=== PATIENT | male | born 2000 | race Caucasian/White ===

== ENCOUNTER 2020-09-07 08:21 | Emergency (ER) | payer BC ==
[2020-09-07] MEDS ORDERED: Zofran 4 MG/2 ML VIAL IV ONE (08:59)
[2020-09-07] MEDS ORDERED: Sodium Chloride 0.9% 1000 ML 1,000 ML IV STA (08:59)
[2020-09-07] MEDS ORDERED: PROTONIX 40 MG IV IV ONE ×2 (08:59→09:09)
[2020-09-07] MEDS ORDERED: GI COCKTAIL 45 ML (Maalox/Lidocaine) PO ONE (08:59)
[2020-09-07] MEDS ORDERED: XYLOCAINE HCl Viscous ONE (09:09)
[2020-09-07] MEDS ORDERED: Sodium Chloride 0.9% 1000 ML 1,000 ML ONE (09:09)
[2020-09-07] MEDS ORDERED: Zofran 4 MG/2 ML VIAL ONE (09:09)
[2020-09-07] MEDS ORDERED: MAALOX ES 30 ML UNIT DOSE ONE (09:09)
[2020-09-07 09:12] LABS: Hematocrit 45.2 % (42-50); Hemoglobin 15.7 gm/dl (12.5-18.0); Mean Cell Volume 84.8 fl (78-100); Mean Corpuscular Hemoglobin 29.5 pg (26-32); Mean Corpuscular Hgb Concent. 34.7 g/dl (32-36); Mean Platelet Volume 10.1 fl (7.5-11.0); Platelet Count 220 K/mm3 (150-450); Red Blood Count 5.33 M/mm3 (4.1-5.6); Red Cell Distribution Width 12.5 % (11.5-14.0); White Blood Count 6.9 K/mm3 (4.0-10.5)
[2020-09-07 09:19] LABS: Appearance CLEAR (CLEAR); Bacteria RARE /HPF (NEGATIVE); Bilirubin NEGATIVE (NEGATIVE); Blood NEGATIVE Ery/ul (0-5); Glucose NEGATIVE (NEGATIVE); Ketones NEGATIVE (NEGATIVE); Leukocyte Esterase NEGATIVE (NEGATIVE); Mucus SLIGHT /HPF (NEGATIVE); Nitrite NEGATIVE (NEGATIVE); Protein,Urine Dip NEGATIVE (Negative); RBC 0-2 /HPF (0-2); Urobilinogen 2 mg/dL (0-1)
[2020-09-07 09:20] LABS: ALBUMIN 4.7 g/dL (3.5-5.0); ALKALINE PHOSPHATASE 62 U/L (38-126); ANION GAP 14.2 MEQ/L (5-15); BLOOD UREA NITROGEN 14 mg/dL (9-20); CHLORIDE 102 mmol/L (98-107); Calcium 9.6 mg/dL (8.4-10.2); Carbon Dioxide 26 mmol/L (22-30); Creatinine 1 0.84 mg/dL (0.66-1.25); EST GLOMERULAR FILTRATION RATE > 60.0 ML/MIN; Glucose 99 mg/dL (74-106); LIPASE 44 U/L (23-300); Potassium 3.9 mmol/L (3.5-5.1); SGOT/AST 37 U/L (17-59); SGPT/ALT 49 U/L (0-50); SODIUM 139 mmol/L (137-145); Total Protein 8.2 g/dL (6.3-8.2)
--- NOTE | 2020-09-07 09:50 | XRAY ---
Indication: Abdomen pain and vomiting. Multiple contiguous images obtained through the abdomen and pelvis using 80 cc Isovue 370 contrast. Comparison: April 14, 2015. Lung bases remain clear. Heart is not enlarged. Noncontrasted stomach and bowel loops remain nonobstructed. Normal appendix. New minimal scattered colonic diverticulosis without diverticulitis. No free fluid/air. Mild diffuse fatty liver. Spleen remains enlarged measuring 15.1 cm. Stable 6 mm left mid renal cyst. Remaining liver, gallbladder, pancreas, spleen, adrenal glands, kidneys, ureters, bladder, and aorta appear unremarkable. No pathologic retroperitoneal lymphadenopathy. Osseous structures intact. No ventral or inguinal hernias. Impression: 1. New fatty liver and colonic diverticulosis. 2. Stable splenomegaly and left renal cyst. 3. Remaining CT abdomen/pelvis with contrast exam is negative.
--- NOTE | 2020-09-07 10:55 | ERPHSYRPT ---
- History of Present Illness Time Seen by Provider: 09/07/20 08:49 Historian: patient Exam Limitations: no limitations Patient Subjective Stated Complaint: Vomiting blood/abdominal pain Triage Nursing Assessment: Patient ambulated back to ED and transferred self to bed. Patient A+O X3. Patient's skin pink, warm and dry. Patient complains of vomiting bright red blood that started at 0200. Patient states he feels drainage in the back of his throat, but when he vomits it is bright red blood. Patient also complains of lower abdominal pain intermittent dull pain 5/10. Abdomen soft and round with BS X 4. Patient complains of pain when swallowing. Physician History: 20 years old presented in the ER with chief complaint of epigastric pain with nausea and vomiting. Patient report he woke up around 330 this morning with nausea and burning and vomited once. He was dry heaving before vomiting and vomitus contained a tinge of blood. He went back to sleep and woke up around 7 AM again with nausea and vomited once with a range of blood. He is complaining of dull aching pain in the upper abdomen. Denies any sick contact. No fever or chills reported. Denies any history of acid reflux. Timing/Duration: day(s) Activities at Onset: sleep Quality: burning, dullness Abdominal Pain Onset Location: epigastric, periumbilical Pain Radiation: no radiation Severity of Pain-Max: moderate Severity of Pain-Current: moderate Modifying Factors: Improves With: nothing Associated Symptoms: nausea, vomiting Previous symptoms: no prior history Allergies/Adverse Reactions: naproxen [From Naprosyn] Allergy (Severe, Verified 09/07/20 08:27) Swelling of Face Hx Tetanus, Diphtheria Vaccination/Date Given: Yes Hx Influenza Vaccination/Date Given: No Hx Pneumococcal Vaccination/Date Given: No Immunizations Up to Date: Yes Travel Risk - International Travel Have you traveled outside of the country in past 3 weeks: No - Coronavirus Screening Are you exhibiting any of the following symptoms?: No Close contact with a COVID-19 positive Pt in past 14-21 Days: No - Review of Systems Constitutional: No Symptoms Eyes: No Symptoms Ears, Nose, & Throat: No Symptoms Respiratory: No Symptoms Cardiac: No Symptoms Abdominal/Gastrointestinal: Abdominal Pain, Nausea, Vomiting Genitourinary Symptoms: No Symptoms Musculoskeletal: No Symptoms Skin: No Symptoms Neurological: No Symptoms Psychological: No Symptoms Endocrine: No Symptoms Hematologic/Lymphatic: No Symptoms Immunological/Allergic: No Symptoms - Past Medical History Pertinent Past Medical History: Yes Neurological History: No Pertinent History ENT History: No Pertinent History Cardiac History: No Pertinent History Respiratory History: No Pertinent History Endocrine Medical History: No Pertinent History Musculoskeletal History: No Pertinent History, Other GI Medical History: No Pertinent History History: No Pertinent History Psycho-Social History: No Pertinent History Male Reproductive Disorders: No Pertinent History Other Medical History: CONCUSSION, currently been worked up at [facility] for cara barre virus, and guillion kalyani 2016 - Past Surgical History Past Surgical History: Yes Male Surgical History: Testicular Surgery Other Surgical History: UNDECENDING TESTICLE - Social History Smoking Status: Never smoker Exposure to second hand smoke: No Drug Use: none Patient Lives Alone: No - Nursing Vital Signs Nursing Vital Signs: Initial Vital Signs Temperature 98.7 F 09/07/20 08:29 Pulse Rate 96 H 09/07/20 08:29 Respiratory Rate 18 09/07/20 08:29 Blood Pressure 149/79 09/07/20 08:29 O2 Sat by Pulse Oximetry 99 09/07/20 08:29 Pain Scale Pain Intensity 0 - Physical Exam General Appearance: no apparent distress, alert, anxiety Eye Exam: eyes nml inspection Ears, Nose, Throat Exam: normal ENT inspection, pharynx normal Neck Exam: normal inspection, non-tender, supple, full range of motion Respiratory Exam: normal breath sounds, lungs clear Cardiovascular Exam: regular rate/rhythm, normal heart sounds Gastrointestinal/Abdomen Exam: soft, normal bowel sounds, tenderness (Epigastric area), No guarding Back Exam: normal inspection, normal range of motion, No CVA tenderness Extremity Exam: normal inspection, normal range of motion, pelvis stable Neurologic Exam: alert, oriented x 3, cooperative Skin Exam: normal color SpO2 Interpretation: normal SpO2: 99 O2 Delivery: Room Air Ordered Tests: Active Orders 24 hr Category Date Time Status IV Insertion STAT Care 09/07/20 08:59 Completed NPO (ED) STAT Care 09/07/20 08:59 Completed ABDOMEN AND PELVIS W CONTRAST [CT] Stat Exams 09/07/20 09:00 Completed CBC W DIFF Stat Lab 09/07/20 08:50 Completed CMP Stat Lab 09/07/20 08:50 Completed LIPASE Stat Lab 09/07/20 08:50 Completed Manual Differential NC Stat Lab 09/07/20 08:50 Completed UA W/RFX UR CULTURE Stat Lab 09/07/20 09:03 Completed Medication Summary Discontinued Medications Generic Name Dose Route Start Last Admin Trade Name Radhika PRN Reason Stop Dose Admin Al Hydrox/Mg Hydrox/Simethicone Confirm 09/07/20 09:09 Maalox Es 30 Ml Unit Dose Administered 09/07/20 09:10 Dose 30 ml .ROUTE .STK-MED ONE Sodium Chloride 1,000 mls @ 999 mls/hr 09/07/20 08:59 09/07/20 10:15 Sodium Chloride 0.9% 1000 Ml IV 09/07/20 09:59 Infused .Q1H1M STA Infusion Sodium Chloride Confirm 09/07/20 09:09 Sodium Chloride 0.9% 1000 Ml Administered 09/07/20 09:10 Dose 1,000 mls @ ud .ROUTE .STK-MED ONE Lidocaine HCl Confirm 09/07/20 09:09 Xylocaine Hcl Viscous * Administered 09/07/20 09:10 Dose 15 ml .ROUTE .STK-MED ONE Magnesium Hydroxide 45 ml 09/07/20 08:59 09/07/20 09:13 Gi Cocktail 45 Ml (Maalox/Lidocaine) PO 09/07/20 09:00 45 ml STAT ONE Administration Ondansetron HCl 4 mg 09/07/20 08:59 09/07/20 09:13 Zofran 4 Mg/2 Ml Vial IV 09/07/20 09:00 4 mg STAT ONE Administration Ondansetron HCl Confirm 09/07/20 09:09 Zofran 4 Mg/2 Ml Vial Administered 09/07/20 09:10 Dose 4 mg .ROUTE .STK-MED ONE Pantoprazole Sodium 40 mg 09/07/20 08:59 09/07/20 09:12 Protonix 40 Mg Iv IV 09/07/20 09:00 40 mg STAT ONE Administration Pantoprazole Sodium Confirm 09/07/20 09:09 Protonix 40 Mg Iv Administered 09/07/20 09:10 Dose 40 mg IV .STK-MED ONE Lab/Rad Data: Laboratory Result Diagrams 09/07/20 08:50 09/07/20 08:50 Laboratory Results 09/07/20 09/07/20 09/07/20 Range/Units 09:03 08:50 08:50 WBC 6.9 (4.0-10.5) K/mm3 RBC 5.33 (4.1-5.6) M/mm3 Hgb 15.7 (12.5-18.0) gm/dl Hct 45.2 (42-50) % MCV 84.8 (78-100) fl MCH 29.5 (26-32) pg MCHC 34.7 (32-36) g/dl RDW 12.5 (11.5-14.0) % Plt Count 220 (150-450) K/mm3 MPV 10.1 (7.5-11.0) fl Segmented Neutrophils 70 H (36.-66.) % Lymphocytes (Manual) 19 L (24-44) % Monocytes (Manual) 5 (0.0-12.0) % Eosinophils (Manual) 3 (0.00-3.0) % Atypical Lymphocytes 3 % Toxic Granulation 1+ Platelet Estimate NORMAL (NORMAL) RBC Morphology NORMAL Sodium 139 (137-145) mmol/L Potassium 3.9 (3.5-5.1) mmol/L Chloride 102 (98-107) mmol/L Carbon Dioxide 26 (22-30) mmol/L Anion Gap 14.2 (5-15) MEQ/L BUN 14 (9-20) mg/dL Creatinine 0.84 (0.66-1.25) mg/dL Estimated GFR > 60.0 ML/MIN Glucose 99 (74-106) mg/dL Calcium 9.6 (8.4-10.2) mg/dL Total Bilirubin 0.90 (0.2-1.3) mg/dL AST 37 (17-59) U/L ALT 49 (0-50) U/L Alkaline Phosphatase 62 (38-126) U/L Serum Total Protein 8.2 (6.3-8.2) g/dL Albumin 4.7 (3.5-5.0) g/dL Lipase 44 (23-300) U/L Urine Color YELLOW (YELLOW) Urine Appearance CLEAR (CLEAR) Urine pH 7.0 (5-6) Ur Specific [place] 1.020 (1.005-1.025) Urine Protein NEGATIVE (Negative) Urine Ketones NEGATIVE (NEGATIVE) Urine Blood NEGATIVE (0-5) Meet/ul Urine Nitrite NEGATIVE (NEGATIVE) Urine Bilirubin NEGATIVE (NEGATIVE) Urine Urobilinogen 2 (0-1) mg/dL Ur Leukocyte Esterase NEGATIVE (NEGATIVE) Urine WBC (Auto) NONE (0-5) /HPF Urine RBC (Auto) 0-2 (0-2) /HPF U Epithel Cells (Auto) NONE (FEW) /HPF Urine Bacteria (Auto) RARE (NEGATIVE) /HPF Urine Mucus (Auto) SLIGHT (NEGATIVE) /HPF Urine Culture Reflexed NO (NO) Urine Glucose NEGATIVE (NEGATIVE) mg/dL - Progress Progress: improved Progress Note: 09/07/20 10:52 20 years old is evaluated for epigastric pain with vomiting and some tinge of blood. Is given fluid bolus along with Protonix GI cocktail, on reevaluation feeling much better. Offered pain meds but refused. He has stable H&H and acute abdomen work-up including CT abdomen pelvis with contrast for any acute findings. He does have fatty liver which he is counseled to have outpatient follow-up with PCP. I believe patient has Fabiola-Tiwari tear and started on Protonix. Discussed signs symptoms of worsening needing return to ER which he seems understanding. Counseled pt/family regarding: lab results, diagnosis, need for follow-up, rad results - Departure Departure Disposition: Home Clinical Impression: Fabiola-Tiwari tear Abdominal pain Qualifiers: Abdominal location: epigastric Qualified Code(s): R10.13 - Epigastric pain Condition: Stable Critical Care Time: No Referrals: HIRAM KURTZ MD [Primary Care Provider] - Follow Up with PCP/3 days Instructions: Acid Reflux and GERD in Adults (DC) Additional Instructions: Do not take ibuprofen. Take Tylenol as needed. Continue with Protonix daily. Follow-up with primary care physician for reevaluation. Return to ER for any worsening. Prescriptions: PANTOPRAZOLE 40 mg Tablet [Protonix 40MG Tablet] 40 mg PO QAM #30 tab
[2020-09-07 11:08] VITALS: BP 102/69; PULSE 78
[2020-09-07 13:52] LABS: ATYPICAL LYMPHS 3 %; Eosinophil 3 % (0.00-3.0); Lymphocytes 19 % (24-44); Monocyte 5 % (0.0-12.0); Neutrophils 70 % (36.-66.); Total Cells Counted 100
[2020-09-07 13:53] LABS: Platelet Estimate NORMAL (NORMAL); Toxic Granulation 1+
[2020-09-07 17:00] VITALS: O2SAT 99
== END 2020-09-07 11:08 | disposition home or self-care (01) ==
LOC: ED 08:21
DX: R10.9 Unspecified abdominal pain (principal); K92.0 Hematemesis; K22.6 Gastro-esophageal laceration-hemorrhage syndrome
CPT/HCPCS: 36000; 36415; 74177; 80053; 81001; 83690; 85025; 96360; 96374; 96375; 99284; J2405; A9270-GY

== ENCOUNTER 2021-03-05 03:12 | Emergency (ER) | payer BC ==
--- NOTE | 2021-03-05 03:13 | ERPHSYRPT ---
- History of Present Illness Time Seen by Provider: 03/05/21 03:13 Historian: patient, family Exam Limitations: no limitations Physician History: This is a 20-year-old white male whose had no prior abdominal surgeries and presents with sudden onset of epigastric abdominal pain that occurred while he was sleeping approximately an hour prior to arrival. Patient has no other symptoms. Patient has not eaten since approximately noon on 03/04/2021. He has had no vomiting and no diarrhea. He has no primary chest pain. He has no cough. He denies fevers. He denies chills. He is not short of breath. He is never had anything like this before. Timing/Duration: today Activities at Onset: none Abdominal Pain Onset Location: RUQ, LUQ, epigastric Pain Radiation: no radiation Severity of Pain-Max: moderate Severity of Pain-Current: moderate Associated Symptoms: loss of appetite, No chest pain, No nausea, No vomiting Previous symptoms: no prior history Allergies/Adverse Reactions: naproxen [From Naprosyn] Allergy (Severe, Verified 03/05/21 03:16) Swelling of Face Hx Tetanus, Diphtheria Vaccination/Date Given: Yes Hx Influenza Vaccination/Date Given: No Hx Pneumococcal Vaccination/Date Given: No Travel Risk - International Travel Have you traveled outside of the country in past 3 weeks: No - Coronavirus Screening Are you exhibiting any of the following symptoms?: No Close contact with a COVID-19 positive Pt in past 14-21 Days: No - Review of Systems Constitutional: No Symptoms Eyes: No Symptoms Ears, Nose, & Throat: No Symptoms Respiratory: No Symptoms Cardiac: No Symptoms Abdominal/Gastrointestinal: Abdominal Pain, Appetite Changes, No Nausea, No Vomiting, No Diarrhea Genitourinary Symptoms: No Symptoms Musculoskeletal: No Symptoms Skin: No Symptoms Neurological: No Symptoms Psychological: No Symptoms Endocrine: No Symptoms Hematologic/Lymphatic: No Symptoms Immunological/Allergic: No Symptoms All Other Systems: Reviewed and Negative - Past Medical History Pertinent Past Medical History: Yes Neurological History: No Pertinent History ENT History: No Pertinent History Cardiac History: No Pertinent History Respiratory History: No Pertinent History Endocrine Medical History: No Pertinent History Musculoskeletal History: No Pertinent History, Other GI Medical History: No Pertinent History History: No Pertinent History Psycho-Social History: No Pertinent History Male Reproductive Disorders: No Pertinent History Other Medical History: CONCUSSION, currently been worked up at [facility] for cara barre virus, and guillion kalyani 2016 - Past Surgical History Past Surgical History: Yes Male Surgical History: Testicular Surgery Other Surgical History: UNDECENDING TESTICLE - Social History Smoking Status: Never smoker Exposure to second hand smoke: No Drug Use: none Patient Lives Alone: No - Nursing Vital Signs Nursing Vital Signs: Initial Vital Signs Temperature 99.2 F 03/05/21 03:34 Pulse Rate 86 03/05/21 03:34 Respiratory Rate 18 03/05/21 03:34 Blood Pressure 145/85 03/05/21 03:34 O2 Sat by Pulse Oximetry 97 03/05/21 03:34 Pain Scale Pain Intensity 7 - Physical Exam General Appearance: no apparent distress, alert, anxiety Eye Exam: PERRL/EOMI, eyes nml inspection Ears, Nose, Throat Exam: normal ENT inspection, moist mucous membranes Neck Exam: normal inspection, non-tender, supple, full range of motion Respiratory Exam: normal breath sounds, lungs clear, No chest tenderness, No respiratory distress Cardiovascular Exam: regular rate/rhythm, normal heart sounds, normal peripheral pulses Gastrointestinal/Abdomen Exam: soft, normal bowel sounds, tenderness (To palpation in the epigastric area.), guarding (Epigastric area.), No rebound Rectal Exam: not done Back Exam: normal inspection, normal range of motion, No CVA tenderness, No vertebral tenderness Extremity Exam: normal inspection, normal range of motion, pelvis stable Neurologic Exam: alert, oriented x 3, cooperative, rental agent II-XII nml as tested, normal mood/affect, nml cerebellar function, nml station & gait, sensation nml Skin Exam: normal color, warm, dry Lymphatic Exam: No adenopathy SpO2 Interpretation: normal O2 Delivery: Room Air - Course Nursing assessment & vital signs reviewed: Yes Ordered Tests: Active Orders 24 hr Category Date Time Status EKG-ER Only STAT Care 03/05/21 03:22 Active IV Insertion STAT Care 03/05/21 03:22 Active ABDOMEN AND PELVIS W/0 CONTRAS [CT] Stat Exams 03/05/21 03:22 Taken AMYLASE Stat Lab 03/05/21 03:29 Completed CBC W DIFF Stat Lab 03/05/21 03:29 Completed CMP Stat Lab 03/05/21 03:29 Completed LIPASE Stat Lab 03/05/21 03:29 Completed Lactic Acid Stat Lab 03/05/21 03:48 Completed Manual Differential NC Stat Lab 03/05/21 03:29 Completed TROPONIN Q3H Lab 03/05/21 03:29 Completed TROPONIN Q3H Lab 03/05/21 06:30 Ordered TROPONIN Q3H Lab 03/05/21 09:30 Ordered TROPONIN Q3H Lab 03/05/21 12:30 Ordered TROPONIN Q3H Lab 03/05/21 15:30 Ordered UA W/RFX UR CULTURE Stat Lab 03/05/21 03:29 Completed Medication Summary Discontinued Medications Generic Name Dose Route Start Last Admin Trade Name Radhika PRN Reason Stop Dose Admin Al Hydrox/Mg Hydrox/Simethicone Confirm 03/05/21 03:35 Maalox Es 30 Ml Unit Dose Administered 03/05/21 03:36 Dose 30 ml .ROUTE .STK-MED ONE Al Hydrox/Mg Hydrox/Simethicone Confirm 03/05/21 03:36 Maalox Es 30 Ml Unit Dose Administered 03/05/21 03:37 Dose 30 ml .ROUTE .STK-MED ONE Hydromorphone HCl 0.5 mg 03/05/21 03:22 03/05/21 03:46 Hydromorphone 1 Mg/Ml Injection IV 03/05/21 03:23 0.5 mg STAT ONE Administration Hydromorphone HCl Confirm 03/05/21 03:34 Hydromorphone 1 Mg/Ml Injection Administered 03/05/21 03:35 Dose 1 mg .ROUTE .STK-MED ONE Sodium Chloride 1,000 mls @ 999 mls/hr 03/05/21 03:22 03/05/21 05:36 Sodium Chloride 0.9% 1000 Ml IV 03/05/21 04:22 Infused .Q1H1M STA Infusion Sodium Chloride Confirm 03/05/21 03:35 Sodium Chloride 0.9% 1000 Ml Administered 03/05/21 03:36 Dose 1,000 mls @ ud .ROUTE .STK-MED ONE Lidocaine HCl Confirm 03/05/21 03:35 Xylocaine Hcl Viscous * Administered 03/05/21 03:36 Dose 15 ml .ROUTE .STK-MED ONE Magnesium Hydroxide 45 ml 03/05/21 03:22 03/05/21 03:40 Gi Cocktail 45 Ml (Maalox/Lidocaine) PO 03/05/21 03:23 45 ml STAT ONE Administration Ondansetron HCl 4 mg 03/05/21 03:22 03/05/21 03:47 Zofran 4 Mg/2 Ml Vial IV 03/05/21 03:23 4 mg STAT ONE Administration Ondansetron HCl Confirm 03/05/21 03:45 Zofran 4 Mg/2 Ml Vial Administered 03/05/21 03:46 Dose 4 mg .ROUTE .STK-MED ONE Pantoprazole Sodium 40 mg 03/05/21 03:22 03/05/21 03:46 Protonix 40 Mg Iv IV 03/05/21 03:23 40 mg STAT ONE Administration Pantoprazole Sodium Confirm 03/05/21 03:34 Protonix 40 Mg Iv Administered 03/05/21 03:35 Dose 40 mg IV .STK-MED ONE Potassium Chloride 10 meq 03/05/21 04:24 03/05/21 04:35 Klor Con 10 Meq PO 03/05/21 04:25 10 meq STAT ONE Administration Potassium Chloride Confirm 03/05/21 04:34 Klor Con 10 Meq Administered 03/05/21 04:35 Dose 10 meq PO .STK-MED ONE Lab/Rad Data: Laboratory Result Diagrams 03/05/21 03:29 03/05/21 03:29 Laboratory Results 03/05/21 03/05/21 03/05/21 Range/Units 03:48 03:29 03:29 WBC (4.0-10.5) K/mm3 RBC (4.1-5.6) M/mm3 Hgb (12.5-18.0) gm/dl Hct (42-50) % MCV (78-100) fl MCH (26-32) pg MCHC (32-36) g/dl RDW (11.5-14.0) % Plt Count (150-450) K/mm3 MPV (7.5-11.0) fl Segmented Neutrophils (36.-66.) % Band Neutrophils (0.0-2.0) % Lymphocytes (Manual) (24-44) % Monocytes (Manual) (0.0-12.0) % Platelet Estimate (NORMAL) RBC Morphology Sodium 142 (137-145) mmol/L Potassium 3.3 L (3.5-5.1) mmol/L Chloride 103 (98-107) mmol/L Carbon Dioxide 25 (22-30) mmol/L Anion Gap 17.2 H (5-15) MEQ/L BUN 13 (9-20) mg/dL Creatinine 0.95 (0.66-1.25) mg/dL Estimated GFR > 60.0 ML/MIN Glucose 103 (74-106) mg/dL Lactic Acid 0.7 (0.4-2.0) Calcium 8.3 L (8.4-10.2) mg/dL Total Bilirubin 1.10 (0.2-1.3) mg/dL AST 44 (17-59) U/L ALT 62 H (0-50) U/L Alkaline Phosphatase 57 (38-126) U/L Troponin I < 0.012 (0.000-0.034) ng/mL Serum Total Protein 7.8 (6.3-8.2) g/dL Albumin 4.6 (3.5-5.0) g/dL Amylase 55 (30-110) U/L Lipase 43 (23-300) U/L Urine Color (YELLOW) Urine Appearance (CLEAR) Urine pH (5-6) Ur Specific [place] (1.005-1.025) Urine Protein (Negative) Urine Ketones (NEGATIVE) Urine Blood (0-5) Meet/ul Urine Nitrite (NEGATIVE) Urine Bilirubin (NEGATIVE) Urine Urobilinogen (0-1) mg/dL Ur Leukocyte Esterase (NEGATIVE) Urine WBC (Auto) (0-5) /HPF Urine RBC (Auto) (0-2) /HPF U Epithel Cells (Auto) (FEW) /HPF Urine Bacteria (Auto) (NEGATIVE) /HPF Urine Mucus (Auto) (NEGATIVE) /HPF Urine Culture Reflexed (NO) Urine Glucose (NEGATIVE) mg/dL 03/05/21 03/05/21 Range/Units 03:29 03:29 WBC 4.7 (4.0-10.5) K/mm3 RBC 5.23 (4.1-5.6) M/mm3 Hgb 15.5 (12.5-18.0) gm/dl Hct 44.5 (42-50) % MCV 85.1 (78-100) fl MCH 29.6 (26-32) pg MCHC 34.8 (32-36) g/dl RDW 12.9 (11.5-14.0) % Plt Count 196 (150-450) K/mm3 MPV 10.0 (7.5-11.0) fl Segmented Neutrophils 61 (36.-66.) % Band Neutrophils 1 (0.0-2.0) % Lymphocytes (Manual) 28 (24-44) % Monocytes (Manual) 10 (0.0-12.0) % Platelet Estimate NORMAL (NORMAL) RBC Morphology NORMAL Sodium (137-145) mmol/L Potassium (3.5-5.1) mmol/L Chloride (98-107) mmol/L Carbon Dioxide (22-30) mmol/L Anion Gap (5-15) MEQ/L BUN (9-20) mg/dL Creatinine (0.66-1.25) mg/dL Estimated GFR ML/MIN Glucose (74-106) mg/dL Lactic Acid (0.4-2.0) Calcium (8.4-10.2) mg/dL Total Bilirubin (0.2-1.3) mg/dL AST (17-59) U/L ALT (0-50) U/L Alkaline Phosphatase (38-126) U/L Troponin I (0.000-0.034) ng/mL Serum Total Protein (6.3-8.2) g/dL Albumin (3.5-5.0) g/dL Amylase (30-110) U/L Lipase (23-300) U/L Urine Color ELSY (YELLOW) Urine Appearance CLEAR (CLEAR) Urine pH 5.0 (5-6) Ur Specific [place] 1.028 (1.005-1.025) Urine Protein 30 (Negative) Urine Ketones NEGATIVE (NEGATIVE) Urine Blood NEGATIVE (0-5) Meet/ul Urine Nitrite NEGATIVE (NEGATIVE) Urine Bilirubin NEGATIVE (NEGATIVE) Urine Urobilinogen 4 (0-1) mg/dL Ur Leukocyte Esterase NEGATIVE (NEGATIVE) Urine WBC (Auto) NONE (0-5) /HPF Urine RBC (Auto) NONE (0-2) /HPF U Epithel Cells (Auto) RARE (FEW) /HPF Urine Bacteria (Auto) NONE (NEGATIVE) /HPF Urine Mucus (Auto) SLIGHT (NEGATIVE) /HPF Urine Culture Reflexed NO (NO) Urine Glucose NEGATIVE (NEGATIVE) mg/dL - Progress Progress: improved, pain not gone completely, re-examined Progress Note: 03/05/21 05:37 CAT scan of the abdomen and pelvis without contrast shows duodenitis and no other acute intra-abdominal process Counseled pt/family regarding: lab results, diagnosis, need for follow-up, rad results - Departure Departure Disposition: Home Clinical Impression: Duodenitis Condition: Stable Critical Care Time: No Referrals: HIRAM KURTZ MD [Primary Care Provider] - Additional Instructions: Clear liquid diet. Avoid fatty greasy spicy foods. Avoid alcohol intake. Avoid tobacco and avoid caffeine. Take your medication as prescribed. Follow- up with your primary care physician for further management. Prescriptions: Omeprazole 40 mg PO DAILY #30
[2021-03-05] MEDS ORDERED: GI COCKTAIL 45 ML (Maalox/Lidocaine) PO ONE (03:22)
[2021-03-05] MEDS ORDERED: PROTONIX 40 MG IV IV ONE ×2 (03:22→03:34)
[2021-03-05] MEDS ORDERED: Zofran 4 MG/2 ML VIAL IV ONE (03:22)
[2021-03-05] MEDS ORDERED: Hydromorphone 1 mg/ml Injection IV ONE ×2 (03:22→05:37)
[2021-03-05] MEDS ORDERED: Sodium Chloride 0.9% 1000 ML 1,000 ML IV STA (03:22)
[2021-03-05] MEDS ORDERED: Hydromorphone 1 mg/ml Injection ONE ×2 (03:34→05:39)
[2021-03-05] MEDS ORDERED: MAALOX ES 30 ML UNIT DOSE ONE ×2 (03:35→03:36)
[2021-03-05] MEDS ORDERED: Sodium Chloride 0.9% 1000 ML 1,000 ML ONE (03:35)
[2021-03-05] MEDS ORDERED: XYLOCAINE HCl Viscous ONE (03:35)
[2021-03-05] MEDS ORDERED: Zofran 4 MG/2 ML VIAL ONE (03:45)
[2021-03-05 03:58] LABS: Appearance CLEAR (CLEAR); Bilirubin NEGATIVE (NEGATIVE); Blood NEGATIVE Ery/ul (0-5); Epithelial Cells RARE /HPF (FEW); Glucose NEGATIVE (NEGATIVE); Hematocrit 44.5 % (42-50); Hemoglobin 15.5 gm/dl (12.5-18.0); Ketones NEGATIVE (NEGATIVE); Leukocyte Esterase NEGATIVE (NEGATIVE); Mean Cell Volume 85.1 fl (78-100); Mean Corpuscular Hemoglobin 29.6 pg (26-32); Mean Corpuscular Hgb Concent. 34.8 g/dl (32-36); Mucus SLIGHT /HPF (NEGATIVE); Nitrite NEGATIVE (NEGATIVE); Platelet Count 196 K/mm3 (150-450); Protein,Urine Dip 30 (Negative); Red Blood Count 5.23 M/mm3 (4.1-5.6); Red Cell Distribution Width 12.9 % (11.5-14.0); Specific Gravity 1.028 (1.005-1.025); Urobilinogen 4 mg/dL (0-1); White Blood Count 4.7 K/mm3 (4.0-10.5)
[2021-03-05 04:04] LABS: ALBUMIN 4.6 g/dL (3.5-5.0); ALKALINE PHOSPHATASE 57 U/L (38-126); AMYLASE 55 U/L (30-110); ANION GAP 17.2 MEQ/L (5-15); BLOOD UREA NITROGEN 13 mg/dL (9-20); CHLORIDE 103 mmol/L (98-107); Calcium 8.3 mg/dL (8.4-10.2); Carbon Dioxide 25 mmol/L (22-30); Creatinine 1 0.95 mg/dL (0.66-1.25); EST GLOMERULAR FILTRATION RATE > 60.0 ML/MIN; Glucose 103 mg/dL (74-106); LIPASE 43 U/L (23-300); Potassium 3.3 mmol/L (3.5-5.1); SGOT/AST 44 U/L (17-59); SGPT/ALT 62 U/L (0-50); SODIUM 142 mmol/L (137-145); Total Protein 7.8 g/dL (6.3-8.2)
[2021-03-05] MEDS ORDERED: Klor Con 10 MEQ PO ONE ×2 (04:24→04:34)
[2021-03-05 04:58] LABS: BAND 1 % (0.0-2.0); Lymphocytes 28 % (24-44); Monocyte 10 % (0.0-12.0); Neutrophils 61 % (36.-66.); Platelet Estimate NORMAL (NORMAL); Total Cells Counted 100
[2021-03-05 05:52] VITALS: BP 131/75; PULSE 82; O2SAT 95
--- NOTE | 2021-03-05 07:09 | XRAY ---
Indication: Epigastric pain. Nausea and vomiting. Multiple contiguous axial images obtained through the abdomen and pelvis without contrast. Comparison: September 07, 2020. Lung bases remain clear. Heart not enlarged. Noncontrasted stomach and bowel loops are nonobstructed. Left mid abdomen small bowel loop mildly fluid distended up to 3.2 cm with mild bowel wall thickening, possible focal enteritis. Normal appendix. Minimal scattered colonic diverticulosis. No free fluid/air. Again fatty liver and 15.5 cm splenomegaly. Remaining liver, gallbladder, pancreas, spleen, adrenal glands, kidneys, ureters, bladder, and aorta are unremarkable for noncontrast exam. Osseous structures intact. Impression: 1. Mild focal distended jejunal bowel loop with wall thickening. Rule out enteritis. 2. Again incidental colonic diverticulosis, fatty liver, and splenomegaly. Comment: Preliminary interpretation made by C. No critical discrepancy.
== END 2021-03-05 06:10 | disposition home or self-care (01) ==
LOC: ED 03:12
DX: K29.80 Duodenitis without bleeding (principal)
CPT/HCPCS: 36000; 36415; 74176; 80053; 81001; 82150; 83605; 83690; 84484; 85025; 93005; 96360; 96374; 96376; 99285; J1170; J2405; A9270-GY

== ENCOUNTER 2021-03-16 06:35 | Day surgery (SDC) | payer BC ==
[2021-03-16] MEDS ORDERED: Lactated Ringers 1,000 ML IV ONE (06:42)
[2021-03-16] MEDS ORDERED: Lactated Ringers 1,000 ML IV SCH (07:00)
[2021-03-16] MEDS ORDERED: DIPRIVAN 200 MG/20 ML IV ONE ×2 (08:02→08:08)
[2021-03-16] MEDS ORDERED: Versed 2 MG/2 ML Injection ONE (08:04)
--- NOTE | 2021-03-16 08:46 | OP ---
SURGERY DATE/TIME: 03/16/2021 0802 PREOPERATIVE DIAGNOSIS: Epigastric abdominal pain. POSTOPERATIVE DIAGNOSIS: Normal exam. PROCEDURE: EGD. SURGEON: Wayne Gutierrez M.D. ANESTHESIA: MAC by Wu Malagon CRNA. ESTIMATED BLOOD LOSS: None. SPECIMENS: None. DESCRIPTION OF PROCEDURE: After informed written consent was obtained, the patient was taken to the endoscopy suite. He had a bite block inserted and anesthesia was titrated to the desired level of consciousness after he was placed in left lateral decubitus position. The endoscope was inserted into the posterior oropharynx and under direct visualization the esophagus was easily traversed. The gastroesophageal junction had a normal mucosal appearance. Upon entering into the stomach there was normal rugated gastric mucosa. There were no obvious lesions or defects. No evidence of inflammation or recent bleeding, etc. The pylorus was traversed and the first and second portions of the duodenum had a normal mucosal appearance free of any lesions or defects. Upon withdrawal again the entire gastric mucosa, gastroesophageal junction and esophageal mucosa had a normal appearance. The scope was removed. The patient was transferred to the recovery room in good condition.
[2021-03-16 08:54] VITALS: BP 140/91; PULSE 76; O2SAT 100
== END 2021-03-16 09:00 | disposition home or self-care (01) ==
LOC: SDC 06:35
PROVIDERS: ATTEND Family Medicine
DX: R10.13 Epigastric pain (principal)
CPT/HCPCS: J2250; J2704